=== PATIENT | male | born 1955 | race Caucasian/White ===

== ENCOUNTER 2023-05-21 05:07 | Emergency (ER) | payer MEDICARE, SELFPAY ==
[2023-05-21] VITALS (17 sets, daily range): BP systolic 164–212; BP diastolic 76–146; PULSE 54–72; RESP 16–20; TEMP 36.8–36.9; O2SAT 94–100; BMI 20.5
--- NOTE | 2023-05-21 05:07 | ECG_ITS ---
APPROVED REPORT Exam: Resting ECG HR:71 bpm ECG Measurements Heart Rate 71 AXES IL 166 P 76 QRSd 88 QRS 84 QT 364 T 59 QTc 386 Conclusion SINUS RHYTHM NORMAL ECG UNCONFIRMED REPORT Electronically signed by : Scottie Briones MD 05/23/2023 18:29:18
--- NOTE | 2023-05-21 05:12 | CT_ITS ---
PROCEDURE INFORMATION: Exam: CTA Chest With Contrast Exam date and time: 05/21/2023 6:11 AM Age: 68 years old Clinical indication: Pain; Chest pressure; Additional info: Acute severe cp, back pain, abd pain, HTN, TECHNIQUE: Imaging protocol: Computed tomographic angiography of the chest with contrast. Exam focused on the arteries. 3D rendering (Not supervised by radiologist): MIP and/or 3D reconstructed images were created by the technologist. Radiation optimization: All CT scans at this facility use at least one of these dose optimization techniques: automated exposure control; mA and/or kV adjustment per patient size (includes targeted exams where dose is matched to clinical indication); or iterative reconstruction. Contrast material: ISOVUE; Contrast volume: 100 ml; Contrast route: INTRAVENOUS (IV); REPORTING DATA: Count of CT and Cardiac NM exams in prior 12 months: This patient has received 0 known CTs and 0 known cardiac nuclear medicine studies in the 12 months prior to the current study. COMPARISON: CT ANGIO ABDOMEN PELVIS 05/21/2023 6:11 AM FINDINGS: Pulmonary arteries: Normal. No pulmonary emboli. Aorta: Unremarkable. No aortic aneurysm. No aortic dissection. Lungs: There is gravity dependent ground-glass interstitial change noted in the lower lobes. Mild upper lobe emphysematous changes present. There is scattered nodular apical scarring. Pleural spaces: Unremarkable. No pneumothorax. No pleural effusion. Heart: Unremarkable. No cardiomegaly. No pericardial effusion. Coronary arteries: There is no coronary artery calcification. Lymph nodes: Unremarkable. No enlarged lymph nodes. Kidneys and ureters: Bilateral renal cortical cysts are noted. There is enlargement heterogeneity of the left adrenal measuring 39 x 46 mm with surrounding complex fluid likely representing hemorrhage. Bones/joints: Unremarkable. No acute fracture. Soft tissues: Unremarkable. IMPRESSION: No evidence for pulmonary embolism. COPD. Basilar atelectasis. Left adrenal hemorrhage. Please correlate with CT angiogram of the abdomen performed the same time as COMMENTS: 1. Consistent with the [employer]'s Incidental Findings Committee white paper (J Am Da Radiol 2018): Any incidental renal lesion less than 1 cm or classified as too small to characterize, or any incidental cystic renal lesion characterized as simple-appearing, is likely benign. No follow-up imaging is recommended for these lesions per consensus recommendations based on imaging criteria. 2. In the absence of a history or active diagnosis of lung cancer, it is recommended that this patient with emphysema be evaluated for enrollment in a low dose CT lung cancer screening program.
--- NOTE | 2023-05-21 05:12 | CT_ITS ---
PROCEDURE INFORMATION: Exam: CTA Abdomen and Pelvis With Contrast Exam date and time: 05/21/2023 6:11 AM Age: 68 years old Clinical indication: Abdominal pain; Generalized; Additional info: Acute severe cp, back pain, abd pain, HTN, TECHNIQUE: Imaging protocol: Computed tomographic angiography of the abdomen and pelvis with contrast. Exam focused on the arteries. 3D rendering (Not supervised by radiologist): MIP and/or 3D reconstructed images were created by the technologist. Radiation optimization: All CT scans at this facility use at least one of these dose optimization techniques: automated exposure control; mA and/or kV adjustment per patient size (includes targeted exams where dose is matched to clinical indication); or iterative reconstruction. Contrast material: ISOVUE 370; Contrast volume: 100 ml; Contrast route: INTRAVENOUS (IV); REPORTING DATA: Count of CT and Cardiac NM exams in prior 12 months: This patient has received 0 known CTs and 0 known cardiac nuclear medicine studies in the 12 months prior to the current study. COMPARISON: CT ANGIO CHEST 05/21/2023 6:11 AM FINDINGS: Aorta: Infrarenal abdominal aorta is ectatic measuring 20 mm in maximum transverse dimension with eccentric atheromatous plaque or thrombus along the left side containing a penetrating ulcer. Celiac trunk and mesenteric arteries: No occlusion or significant stenosis. Renal arteries: No occlusion or significant stenosis. Right iliac arteries: No occlusion or significant stenosis. Left iliac arteries: No occlusion or significant stenosis. Liver: No mass. Gallbladder and bile ducts: Unremarkable. No calcified stones. No ductal dilation. Pancreas: Unremarkable. No mass. No ductal dilation. Spleen: Normal caliber. Adrenal glands: There is notable enlargement of the left adrenal measuring 42 x 43 mm with surrounding complex soft tissue density likely representing hemorrhage. High-density fluid is noted collecting below the left diaphragm behind the stomach and spleen. There is mild nodular thickening of the right adrenal. Kidneys and ureters: Unremarkable. No solid mass. No hydronephrosis. Stomach and bowel: Moderate to large stool is noted in the proximal colon. Diverticulosis is noted in the descending and sigmoid segments. Appendix: No evidence of appendicitis. Intraperitoneal space: Unremarkable. No free air. No significant fluid collection. Lymph nodes: Unremarkable. No enlarged lymph nodes. Urinary bladder: The urinary bladder is relatively contracted. Reproductive: The prostate is enlarged and enhances heterogeneously, measuring 5.6 x 5.8 x 4.7 cm. Please correlate clinically and with physical examination. Bones/joints: No acute fracture. Soft tissues: Fat containing bilateral inguinal hernias are noted, right greater than left. IMPRESSION: Left adrenal hemorrhage. THIS REPORT CONTAINS FINDINGS THAT MAY BE CRITICAL TO PATIENT CARE. The findings were verbally communicated via telephone conference with Dean Plummer at 6:54 AM EST on 05/21/2023. The findings were acknowledged and understood. 20 mm infrarenal abdominal aortic ectasia with eccentric mural plaque or thrombus including a penetrating ulcer. The findings should be followed with serial aortic ultrasound, next examination in 6 months. Right-sided constipation. Colonic diverticulosis. Enlarged heterogeneous prostate. Please correlate clinically and with physical examination. Fat containing bilateral inguinal hernias.
--- NOTE | 2023-05-21 05:12 | HMH.EDGENADL ---
Discharge Plan Disposition Chief Complaint: Chest Pain Prescriptions Prescriptions: No Action No Known Home Medications Referrals Follow up/Referrals: Provider,Referral, [Primary Care Provider] - See instructions Stand Alone Forms Stand Alone Forms: Transfer Record - ED Discharge ED Provider: Luis Eugene Adult HPI <Dean Plummer MD - Last Filed: 05/21/23 07:10> General Chief complaint: Chest Pain Stated complaint: CP Time Seen by Provider: 05/21/23 05:12 History of Present Illness HPI narrative: 68-year-old male, no reported past medical history, half pack per day smoker presents with multiple complaints. Patient reports that he had onset of some chest pain on Sunday, it has been intermittent, but worsening. Tonight it is more severe, radiating into his back and his left side, also radiating into his left abdomen. No urinary symptoms. He reports that he has no allergies, has had no surgeries and Takes no medications. He reports that he is generally healthy and has not seen a physician in many years. Denies any focal numbness or tingling. Related Data Home Medications Medication Instructions Recorded Confirmed No Known Home Medications 05/21/23 05/21/23 Allergies Allergy/AdvReac Type Severity Reaction Status Date / Time No Known Allergies Allergy Verified 05/21/23 05:14 PFS <Dean Plummer MD - Last Filed: 05/21/23 07:10> [facility] Disclaimer: The information contained in this section may have been updated after the patient was seen, as this information can be updated by other users. Social History (Updated 05/21/23 @ 07:10 by Dean Plummer MD) Smoking Status: Current every day smoker alcohol intake: never current occupational status: retired Travel in the last 8 weeks: None <Dean Plummer MD - Last Filed: 05/21/23 07:10> ROS Obtained: Yes All systems reviewed & no additional complaints except as documented Physical Exam <Dean Plummer MD - Last Filed: 05/21/23 07:10> General General appearance: alert and anxious Head Head exam: atraumatic and normocephalic Eye Eye exam: Present normal appearance, PERRL and EOMI ENT ENT exam: Present normal oropharynx and normal external ear exam Neck Neck exam: Present normal inspection and full ROM Chest Chest inspection: Present normal inspection and symmetric chest wall rise; Absent tenderness Respiratory Respiratory exam: Present normal lung sounds bilaterally; Absent respiratory distress Cardiovascular Cardiovascular exam: Present regular rate and normal rhythm Abdominal Exam Abdominal exam: Present soft; Absent distention, tenderness or guarding Extremities Exam Extremities exam: Present normal inspection; Absent edema or joint swelling Back Exam Back exam: Present normal inspection; Absent tenderness Neurological Exam Neurological exam: Present alert and oriented X3; Absent motor sensory deficit Psychiatric Psychiatric exam: Present normal affect and anxious Skin Skin exam: Present warm, dry and normal color Lymphatic Lymphatic Findings: no adenopathy Medical Decision Making <Dean Plummer MD - Last Filed: 05/21/23 07:10> Medical Records Medical records reviewed: Yes I reviewed the patient's medical records. Joao Inquiry Pt receiving controlled substance: No Joao was queried for this patient: No Vital Signs: 05/21/23 05:07 05/21/23 05:20 05/21/23 05:31 Temperature 98.3 F Temperature Source Oral Pulse Rate 65 Pulse Rate [Radial] 70 Respiratory Rate 16 Blood Pressure 212/94 H 178/85 H Blood Pressure [Right Arm] 207/107 H Blood Pressure Mean Blood Pressure Mean [Right Arm] 140 Blood Pressure Source [Right Arm] Automatic Cuff Blood Pressure Position [Right Arm] Supine 02 Sat by Pulse Oximetry 100 97 Oxygen Delivery Method Room Air Room Air 05/21/23 05:30 05/21/23 06:00 05/21/23 06:30 Temperature 98.5 F 98.3 F Temperature Source Oral Oral Pulse Rate
[2023-05-21 05:19] LABS: Basophils # 0.1 K/mm3 (0-0.2); Basophils % 0.2 % (0.1-2.0); Eosinophils # 0.1 K/mm3 (0.0-0.4); Eosinophils % 0.3 % (0.1-12.0); Hemoglobin 16.2 g/dL (14.1-18.0); Lymphocytes # 2.1 K/mm3 (0.7-4.5); Lymphocytes % 9.6 % (10-50); Mean Corpuscular Hemoglobin 31.7 pg (27.0-31.2); Mean Corpuscular Volume 95.9 fl (80-94); Mean Platelet Volume 7.7 fl (7.4-10.4); Monocytes # 1.4 K/mm3 (0.1-1.0); Monocytes % 6.4 % (1.7-9.3); Neutrophils # 17.9 K/mm3 (1.8-7.8); Neutrophils % 83.5 % (37.0-80.0); Platelet Count 340 K/mm3 (142-424); Red Cell Distribution Width 13.5 % (11.5-17.5); White Blood Count 21.5 K/mm3 (4.8-10.8)
[2023-05-21 05:21] LABS: Chloride 98 mmol/L (98-107); Sodium 135 mmol/L (136-145)
[2023-05-21 05:22] LABS: Potassium 3.6 mmoL/L (3.5-5.1)
[2023-05-21 05:24] LABS: Alanine Aminotransferase 25 U/L (12-78); Albumin Level 4.6 g/dl (3.5-5.0); Albumin/Globulin Ratio 1.2 (1.1-1.8); Alkaline Phosphatase 69 U/L (38-126); Anion Gap 10.6 mEq/L (5-15); Aspartate Amino Transferase 31 U/L (17-59); Bilirubin,Total 0.7 mg/dl (0.2-1.3); Blood Urea Nitrogen 13 mg/dl (9-20); Calcium 8.8 mg/dl (8.4-10.2); Carbon Dioxide 30 mmol/L (22.0-30.0); Creatinine Clearance Estimated 60 mL/min (50-200); Estimated Glomerular Filt Rate 96 ml/min (>60); GFR (African American) 116 ML/MIN (>60); Globulin 3.8 g/dL (1.3-3.2); Glucose 140 mg/dl (74-100); Total Protein,Serum 8.4 g/dl (6.3-8.2)
[2023-05-21 05:34] LABS: NT Pro Brain Natriuretic Pep. 372 pg/mL (0-125)
[2023-05-21 06:01] LABS: MANUAL DIFFERENTIAL MANUAL DIFFERENTIAL (MANUAL DIFF); Troponin I < 0.01 ng/ml (0.00-0.034)
--- NOTE | 2023-05-21 06:08 | PC.NURSE ---
pt to CT
[2023-05-21 06:34] LABS: Microscopic, Urine URINE MICROSCOPIC (MICROSCOPIC)
[2023-05-21 06:38] LABS: Appearance,Urine CLEAR (Clear); Bilirubin,Urine Negative (Negative); Blood, Urine 1+ (Negative); Color,Urine YELLOW (Yellow); Glucose,Urine (UA) Negative (Negative); Ketones,Urine TRACE (Negative); Leukocyte Esterase,Urine Negative (Negative); Nitrate,Urine Negative (Negative); Protein,Urine Negative (Negative); Specific Gravity, Urine >= 1.030 (1.005-1.030); Urobilinogen,Urine 0.2 EU/dl (0.2)
[2023-05-21 06:52] LABS: Bacteria,Urine Trace /lpf
--- NOTE | 2023-05-21 07:58 | PC.NURSE ---
Pt advised he needs something for pain management Dr. Eugene notified.
[2023-05-21 08:35] LABS: Troponin I 0.02 ng/ml (0.00-0.034)
[2023-05-21 09:06] LABS: Lymphocytes % 14 % (10-50); Monocytes % 7 % (2-9); Neutrophils % 79 % (42-76); Total Cells Counted 100
[2023-05-21 09:07] LABS: Platelet Estimate Normal; RBC Morphology Normal
--- NOTE | 2023-05-21 09:55 | PC.NURSE ---
Checked on patient no needs at this time.
--- NOTE | 2023-05-21 10:38 | PC.NURSE ---
Dr. Eugene speaking with hospitalist
--- NOTE | 2023-05-21 10:43 | PC.NURSE ---
waiting structural iron erector back from Dr. Kumar
--- NOTE | 2023-05-21 11:08 | PC.NURSE ---
Dr. Eugene speaking with Dr. Kumar
--- NOTE | 2023-05-21 11:13 | PC.NURSE ---
DR SIMPSON AT BEDSIDE TO UPDATE PT
--- NOTE | 2023-05-21 11:16 | PC.NURSE ---
asked RAD to make a disc for transfer
--- NOTE | 2023-05-21 11:19 | PC.NURSE ---
placed call to [facility] for transfer awaiting call back
--- NOTE | 2023-05-21 12:34 | PC.NURSE ---
placeed call to [facility], they do not have endocrinology at either facility.
--- NOTE | 2023-05-21 12:41 | PC.NURSE ---
placed call to [facility] for transfer
--- NOTE | 2023-05-21 12:46 | PC.NURSE ---
Dr Eugene speaking to [facility]
--- NOTE | 2023-05-21 13:05 | PC.NURSE ---
STEPH FISH Speaking with [facility]
--- NOTE | 2023-05-21 13:05 | PC.NURSE ---
the medical center called requesting a face sheet on pt states will place pt on wait list once she receives face sheet. States unknown on how long wait time could be for bed availability. face sheet faxed
--- NOTE | 2023-05-21 13:14 | PC.NURSE ---
[facility] icu accepted pt
--- NOTE | 2023-05-21 13:55 | PC.NURSE ---
Pt to go to [facility] ICU room 449
== END 2023-05-21 14:31 | disposition short-term general hospital (02) ==
PROVIDERS: Emergency Medicine; Emergency Provider Emergency Medicine
DX: E27.49 Other adrenocortical insufficiency (principal); R10.12 Left upper quadrant pain; M54.6 Pain in thoracic spine; D72.829 Elevated white blood cell count, unspecified; N28.1 Cyst of kidney, acquired; F17.210 Nicotine dependence, cigarettes, uncomplicated
CPT/HCPCS: 71275; 74174; 80053; 81001; 83880; 84484; 85007; 85025; 93005; 96361; 96374; 96375; 96376; 99285; Q9967